=== PATIENT | female | born 1965 | race Caucasian/White ===

== ENCOUNTER 2019-03-22 07:31 | Emergency (ER) | payer OTHER ==
[~2019-03-22] VITALS: Ht 185.4 cm; Wt 83.9 kg
[2019-03-22] MEDS: CIPROFLOXACIN 500 MG TAB PO SCH (07:51)
[2019-03-22] MEDS ORDERED: CIPROFLOXACIN 500 MG TAB ONE (07:57)
== END 2019-03-22 07:51 | disposition home or self-care (01) ==
LOC: FSED 07:31
DX: Z00.00 Encounter for general adult medical examination without abnormal findings (principal); Z20.811 Contact with and (suspected) exposure to meningococcus
CPT/HCPCS: 99282

== ENCOUNTER → 2020-06-25 | Outpatient (CLI) | payer OTHER ==
[~2020-06-25] MED LIST: COVID-19 VACC, MRNA(MODERNA)/PF 100 MCG/0.5 ML VIAL IM ONE
== END | disposition home or self-care (01) ==
LOC: VACCPMC 18:30
DX: Z23 Encounter for immunization (principal); Z20.828 Contact with and (suspected) exposure to other viral communicable diseases

== ENCOUNTER → 2020-08-01 | Outpatient (CLI) | payer OTHER | END | DRG 951 | LOC: VACCPMC 08:37 | DX: Z23 Encounter for immunization (principal); Z20.822 Contact with and (suspected) exposure to COVID-19 | CPT/HCPCS: 0012A; 91301 ==